=== PATIENT | male | born 1960 | race Native Hawaiian/Other Pacific Islander ===

== ENCOUNTER 2016-08-03 20:26 | Inpatient (IN) | payer OTHER ==
[2016-08-03] MEDS ORDERED: Propofol 10 mg/ml Inj (20 ML) IVP ONE (22:24)
[2016-08-03 22:27] LABS: ADD MANUAL DIFF? NO
[2016-08-03 22:39] LABS: BASO # 0.02 K/mm3 (0.0-2.0); BASO % 0.2 % (0.0-3.0); GRAN # 9.02 (1.4-6.5); GRAN % 82.3 % (50.0-68.0); HEMATOCRIT 42.9 % (42.0-52.0); LYMPH # 1.1 (1.2-3.4); LYMPH % 9.8 % (22.0-35.0); MEAN CELL VOLUME 90.5 fL (80.0-105.0); MEAN CORPUSCULAR HEMOGLOBIN 30.8 pg (25.0-35.0); MEAN PLATELET VOLUME 9.5 fl (7.0-11.0); MONO # 0.9 (0.1-0.6); MONO % 7.7 % (1.0-6.0); PLATELET COUNT 208 10^3/uL (120.0-450.0); RED CELL DISTRIBUTION WIDTH 12.4 % (11.5-14.5)
[2016-08-03 22:41] LABS: ALB/GLOB RATIO 1.4 (1.1-1.8); ALKALINE PHOSPHATASE 66 U/L (38-133); ALT/SGPT 42 U/L (7-56); AST/SGOT 69 U/L (15-59); BILIRUBIN,TOTAL 1.2 mg/dL (0.2-1.3); BLOOD UREA NITROGEN 18 mg/dL (7-21); CALCIUM 9.3 mg/dL (8.4-10.5); CARBON DIOXIDE 28 mmol/L (21-33); CHLORIDE 96 mmol/L (98-107); GFR AFRICAN-AMERICAN > 60; GLUCOSE,RANDOM 137 mg/dL (70-110); POTASSIUM 3.6 mmol/L (3.6-5.0); SODIUM 133 mmol/L (132-148); TOTAL PROTEIN 7.3 g/dL (5.8-8.3)
[2016-08-03 22:46] LABS: INR 1.01 (0.93-1.08); PARTIAL THROMBOPLASTIN TIME 25.9 Seconds (23.7-30.8)
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
[2016-08-03] MEDS ORDERED: HYDROmorphone 0.5 mg/0.5 ml ISec IVP PRN (23:31)
[2016-08-03] MEDS ORDERED: Oxycodone/Acetaminophen 10/325 mg Tab PO PRN (23:32)
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
[2016-08-04] MEDS: Sodium Chloride 0.9% 1,000 ML IV SCH (03:00)
[2016-08-04 04:04] VITALS: BMI 22.7
[2016-08-04] MEDS: Pantoprazole 40 mg EC Tab PO SCH (06:06)
[2016-08-04] MEDS: Pantoprazole 20 mg EC Tab PO SCH (06:06)
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
[2016-08-04 06:55] LABS: ADD MANUAL DIFF? NO
[2016-08-04 07:00] LABS: BASO # 0.02 K/mm3 (0.0-2.0); BASO % 0.3 % (0.0-3.0); EOS % 0.5 % (1.5-5.0); GRAN # 5.22 (1.4-6.5); GRAN % 69.7 % (50.0-68.0); HEMATOCRIT 40.1 % (42.0-52.0); LYMPH # 1.5 (1.2-3.4); LYMPH % 20.4 % (22.0-35.0); MEAN CELL VOLUME 90.5 fL (80.0-105.0); MEAN CORPUSCULAR HGB CONC 33.2 g/dl (31.0-37.0); MEAN PLATELET VOLUME 9.5 fl (7.0-11.0); MONO # 0.7 (0.1-0.6); MONO % 9.1 % (1.0-6.0); PLATELET COUNT 182 10^3/uL (120.0-450.0); RED CELL DISTRIBUTION WIDTH 12.7 % (11.5-14.5); WHITE BLOOD COUNT 7.5 10^3/ul (4.5-11.0)
[2016-08-04 07:22] LABS: MAGNESIUM 1.9 mg/dL (1.7-2.2); PHOSPHOROUS 3.3 mg/dL (2.5-4.5)
--- NOTE | 2016-08-04 07:42 | CT ---
PROCEDURE: CT scan of the left upper extremity without contrast INDICATION: TECHNIQUE: Multiple axial images were obtained with slice thickness of 2.5 mm. Coronal and sagittal reformatted images were obtained. Iterative reconstruction was used. Radiation dose: Total exam DLP = 372.03 mGy-cm. This CT exam was performed using one or more of the following dose reduction techniques: Automated exposure control, adjustment of the mA and/or kV according to patient size, and/or use of iterative reconstruction technique. COMPARISON: None. FINDINGS: There is an acute comminuted fracture in the body of the scapula. There is approximately 1.1 cm distraction of fracture fragments. There is also dorsal angulation and 1 shaft with posterior displacement. There is type 1 acromioclavicular separation. The glenohumeral joint is normal. There is an acute mildly displaced fracture in the left posterior 5th rib. There are acute nondisplaced fracture in the left posterior 3rd and 4th ribs. There is a large left pneumothorax and contusion in the left mid lung. There is deep soft tissue emphysema in the posterior chest wall. IMPRESSION: 1. Acute comminuted fracture in the body of the scapula with approximately 1.1 cm distraction of fracture fragments and dorsal angulation with posterior displacement. 2. Acute mildly displaced fracture in the left posterior 5th rib and nondisplaced fractures in the left 3rd and 4th ribs. Large left pneumothorax and suspect lung contusion in the mid lung. 3. Additional comments as described above. A preliminary report was provided by [employer].
--- NOTE | 2016-08-04 07:46 | RAD ---
HISTORY: post chest tube placement COMPARISON: Earlier same day FINDINGS: LUNGS: No active pulmonary disease. PLEURA: The left lung has been re-expanded following chest tube placement. There is no residual pneumothorax CARDIOVASCULAR: Normal. OSSEOUS STRUCTURES: No significant abnormalities. VISUALIZED UPPER ABDOMEN: Normal. OTHER FINDINGS: None. IMPRESSION: Re-expansion of left lung
[2016-08-04 07:48] LABS: ALB/GLOB RATIO 1.3 (1.1-1.8); ALKALINE PHOSPHATASE 60 U/L (38-133); ALT/SGPT 36 U/L (7-56); AST/SGOT 76 U/L (15-59); BILIRUBIN,TOTAL 1.6 mg/dL (0.2-1.3); BLOOD UREA NITROGEN 17 mg/dL (7-21); CALCIUM 8.8 mg/dL (8.4-10.5); CARBON DIOXIDE 27 mmol/L (21-33); CHLORIDE 104 mmol/L (98-107); GFR AFRICAN-AMERICAN > 60; GLUCOSE,RANDOM 128 mg/dL (70-110); POTASSIUM 3.9 mmol/L (3.6-5.0); SODIUM 140 mmol/L (132-148); TOTAL PROTEIN 6.4 g/dL (5.8-8.3)
--- NOTE | 2016-08-04 07:52 | RAD ---
HISTORY: cough COMPARISON: No prior. FINDINGS: LUNGS: There is a large left-sided pneumothorax. There is no mediastinal shift PLEURA: No significant pleural effusion identified, no pneumothorax apparent. CARDIOVASCULAR: Normal. OSSEOUS STRUCTURES: There is an overlapping fracture of the left 6th rib VISUALIZED UPPER ABDOMEN: Normal. OTHER FINDINGS: A followup film shows chest tube placement. IMPRESSION: Large left-sided pneumothorax and fracture of the left 6th rib
[2016-08-04 07:53] LABS: TROPONIN I 0.02 ng/mL
--- NOTE | 2016-08-04 08:19 | RAD ---
PROCEDURE: Radiographs of the Left Shoulder HISTORY: injury COMPARISON: No prior. FINDINGS: BONES: There is a transverse fracture through the scapula below the level of the bony glenoid. There is also a fracture of the left 6th rib. There is a left-sided pneumothorax that was subsequently treated with a chest tube. JOINTS: Normal. Glenohumeral and acromioclavicular joints preserved. No osteoarthritis. SOFT TISSUES: Normal. OTHER FINDINGS: None. IMPRESSION: Displaced fracture through the scapula and fracture of the left 6th rib
--- NOTE | 2016-08-04 08:26 | RAD ---
HISTORY: s/p chest tube for pneumo COMPARISON: 08/03/2016. FINDINGS: LUNGS: There is contusion in the left upper lobe. The right lung is clear. No focal consolidation. PLEURA: The left chest tube is stable in position. No residual pneumothorax. Suspect small left pleural effusion. No large right pleural effusion. CARDIOVASCULAR: Normal. OSSEOUS STRUCTURES: No significant abnormalities. VISUALIZED UPPER ABDOMEN: Normal. OTHER FINDINGS: None. IMPRESSION: Stable position of left chest tube. No residual pneumothorax. Suspect small left pleural effusion.
--- NOTE | 2016-08-04 09:09 | CT ---
PROCEDURE: CT Chest without contrast HISTORY: scapula fx COMPARISON: None. TECHNIQUE: Contiguous axial images were obtained through the chest without intravenous contrast enhancement. Sagittal and coronal reconstructions were performed. Radiation dose (DLP): 472.23 mGy-cm. This CT exam was performed using one or more of the following dose reduction techniques: Automated exposure control, adjustment of the mA and/or kV according to patient size, and/or use of iterative reconstruction technique. FINDINGS: LUNGS: There is multifocal increased attenuation in the left upper lobe and lingula. There is subsegmental atelectasis in the inferior lingula and left lower lobe. The right lung is clear. MEDIASTINUM: The aorta is normal in size. No aneurysm. Normal sized heart. Main pulmonary artery unremarkable. No vascular congestion. No lymphadenopathy. PLEURA: There is a large left pneumothorax. No evidence of mediastinal shift. BONES: There are acute nondisplaced fractures in the left lateral 3rd and 4th ribs. There is an acute displaced fracture in the left posterior 5th rib. There is an acute comminuted fracture in the left scapula. UPPER ABDOMEN: Evaluation of the abdomen is limited due to extensive streak artifacts OTHER FINDINGS: None. IMPRESSION: 1. Large left pneumothorax and suspect lung contusion in the upper lobe and lingula. 2. Acute mildly displaced fracture in the left posterior 5th rib and acute nondisplaced fractures in left lateral 3rd and 4th ribs. A preliminary report was provided by [employer].
--- NOTE | 2016-08-04 09:53 | CARD ---
APPROVED REPORT EKG Measurement Heart [id number] <Conclusion> Normal sinus rhythm Possible Left atrial enlargement Right bundle branch block Abnormal ECG
--- NOTE | 2016-08-04 10:05 | CARD ---
APPROVED REPORT EXAM: Two-dimensional and M-mode echocardiogram with Doppler and color Doppler. INDICATION CARDIAC CONTUSION 2D DIMENSIONS IVSd0.9 (0.7-1.1cm)LVDd4.5 (3.9-5.9cm) PWd1.1 (0.7-1.1cm)LVDs2.7 (2.5-4.0cm) FS (%) 40.3 %LVEF (%)71.2 (>50%) M-Mode DIMENSIONS Aortic Root3.20 (2.2-3.7cm)Aortic Cusp Exc.1.90 (1.5-2.0cm) Aortic Valve AoV Peak Sobppwvg891.0cm/Noah Peak GR.6mmHg Mitral Valve E/A ratio0.0 TDI E/Lateral E'0.0E/Medial E'0.0 Pulmonary Valve PV Peak Rkxnhxbu35.3cm/sPV Peak Grad.3mmHg Tricuspid Valve TR Peak [id number]/sRAP [id number] Peak Gr.14mmHg [id number] LEFT VENTRICLE The left ventricle is normal size. There is normal left ventricular wall thickness. The left ventricular function is normal.EF-65-70% There is normal LV segmental wall motion. The left ventricular diastolic function is normal. No left ventricle thrombus noted on this study. There is no ventricular septal defect visualized. There is no left ventricular aneurysm. There is no mass noted in the left ventricle. RIGHT VENTRICLE The right ventricle is normal size. There is normal right ventricular wall thickness. The right ventricular systolic function is normal. ATRIA The left atrium size is normal. The right atrium size is normal. The interatrial septum is intact with no evidence for an atrial septal defect. AORTIC VALVE The aortic valve is normal in structure. No aortic regurgitation is present. There is no aortic valvular stenosis. There is no aortic valvular vegetation. MITRAL VALVE The mitral valve is thickened but opens well. Mitral regurgitation is trace. There is no mitral valve stenosis. There is no evidence of mitral valve prolapse. TRICUSPID VALVE The tricuspid valve is normal in structure. There is trace tricuspid regurgitation.RVSP-24 mmof hg. There is no tricuspid valve stenosis. There is no tricuspid valve prolapse or vegetation. PULMONIC VALVE The pulmonary valve is normal in structure. There is no pulmonic valvular regurgitation. There is no pulmonic valvular stenosis. GREAT VESSELS The aortic root is normal in size. The ascending aorta is normal in size. The pulmonary artery is normal. The IVC is normal in size and collapses >50% with inspiration. PERICARDIAL EFFUSION There is no pleural effusion. Trivial Pericardial effusion <Conclusion> Normal chamber Size. EF-65-70% Trace MR/TR RVSP-24 mmof hg Trivial Pericardial effusion. No wall motion abnormality noted.
[2016-08-05] MEDS: Sodium Chloride 0.9% 1,000 ML IV SCH (03:50)
[2016-08-05] MEDS: Pantoprazole 40 mg EC Tab PO SCH (05:41)
[2016-08-05] MEDS: Pantoprazole 20 mg EC Tab PO SCH (06:52)
--- NOTE | 2016-08-05 08:31 | RAD ---
HISTORY: s/p chest tube for pneumo COMPARISON: 08/04/2016 FINDINGS: LUNGS: The left chest tube tip projects over the the medial left mid lung zone on this frontal view. PLEURA: No residual pneumothorax appreciated on this image an apparent inspiration. The trace blunting of left costophrenic angle is unchanged minimal pleural thickening versus trace fluid here considerations. No significant appearing pleural effusions suggested. CARDIOVASCULAR: Normal. OSSEOUS STRUCTURES: Inferior thoracic spondylosis VISUALIZED UPPER ABDOMEN: Normal. OTHER FINDINGS: None. IMPRESSION: No residual or recurring or increasing pneumothorax suggested. Chest tube position as above
[2016-08-05 08:36] LABS: PHOSPHOROUS 3.4 mg/dL (2.5-4.5)
[2016-08-05 09:11] VITALS: RESP 18
[2016-08-05 09:21] LABS: ALB/GLOB RATIO 1.2 (1.1-1.8); ALKALINE PHOSPHATASE 49 U/L (38-133); ALT/SGPT 32 U/L (7-56); AST/SGOT 89 U/L (15-59); BILIRUBIN,TOTAL 2.4 mg/dL (0.2-1.3); BLOOD UREA NITROGEN 12 mg/dL (7-21); CALCIUM 8.7 mg/dL (8.4-10.5); CARBON DIOXIDE 26 mmol/L (21-33); CHLORIDE 105 mmol/L (98-107); GFR AFRICAN-AMERICAN > 60; GLUCOSE,RANDOM 87 mg/dL (70-110); SODIUM 138 mmol/L (132-148); TOTAL PROTEIN 6.3 g/dL (5.8-8.3)
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
--- NOTE | 2016-08-05 13:29 | RAD ---
HISTORY: Repeat eval pneumothorax, on water seal COMPARISON: 08/05/2016 at 7:22 a.m. FINDINGS: LUNGS: A left chest tube tip projects over the medial left mid lung zone as before PLEURA: No residual pneumothorax. No significant appearing pleural pathology appreciated CARDIOVASCULAR: Normal. OSSEOUS STRUCTURES: No significant abnormalities. VISUALIZED UPPER ABDOMEN: Normal. OTHER FINDINGS: None. IMPRESSION: No interval change
--- NOTE | 2016-08-05 15:29 | RAD ---
HISTORY: s/p CT removal COMPARISON: 08/05/2016 chest ; CT chest without contrast 08/03/2016 FINDINGS: LUNGS: The prior mid lung zone left chest tube has been removed PLEURA: No significant pleural effusion identified, no pneumothorax apparent. CARDIOVASCULAR: Normal. OSSEOUS STRUCTURES: A left 5th posterior rib fracture is noted with overriding of the rib fracture site. This appearance is noted on the prior study and unchanged. As per prior CT chest exam additional fractures nondisplaced of the lateral left 3rd and 4th ribs are also present VISUALIZED UPPER ABDOMEN: Normal. OTHER FINDINGS: None. IMPRESSION: Interval removal of the prior left chest tube. No residual pneumothorax seen. Posterior displaced left rib fracture -unchanged since the CT chest exam of 08/03/2016. As per the prior CT exam there is known additional nondisplaced fractures of the left 3rd and 4th 7 previously reported.
[2016-08-05 17:26] VITALS: BP 109/65; PULSE 70; TEMP 97.6; O2SAT 100
== END 2016-08-05 17:28 | disposition home or self-care (01) | DRG 200 ==
LOC: ED 20:26 → ERH 23:27 → CCU 08-04 02:16 → 3RSO 08-04 18:21
PROVIDERS: ADMIT Surgery; ATTEND Surgery
PROC: 0W9B30Z Drainage of Left Pleural Cavity with Drainage Device, Percutaneous Approach (ICD-10-PCS; principal; 2016-08-03)
DX: J93.9 Pneumothorax, unspecified (principal); S26.91XA Contusion of heart, unspecified with or without hemopericardium, initial encounter; S42.102A Fracture of unspecified part of scapula, left shoulder, initial encounter for closed fracture; V18.4XXA Pedal cycle driver injured in noncollision transport accident in traffic accident, initial encounter; Y93.55 Activity, bike riding; R40.2412 Glasgow coma scale score 13-15, at arrival to emergency department; S20.312A Abrasion of left front wall of thorax, initial encounter

== ENCOUNTER 2018-06-06 15:24 | Emergency (ER) | payer BC, OTHER ==
[2018-06-06 16:07] VITALS: BMI 22.1
[2018-06-06 16:16] VITALS: BP 115/82; PULSE 69; RESP 16; TEMP 98.1; O2SAT 96
[2018-06-06 16:48] LABS: INFLUENZA A B NEGATIVE FOR FLU A/B (NEGATIVE)
--- NOTE | 2018-06-06 16:56 | ED PDOC ---
Arrival/HPI - General Chief Complaint: ENT Problem Time Seen by Provider: 06/06/18 16:10 Historian: Patient - History of Present Illness Narrative History of Present Illness (Text): 06/06/18 16:55 58 year old M presents with sore throat. Patient denies any fevers, chills, headache, dizziness, chest pain, shortness of breath, dyspnea on exertion, cough, abdominal pain, nausea, vomiting, diarrhea, back pain, neck pain, or any other complaint. Symptom Onset: Sudden Symptom Course: Unchanged Activities at Onset: Light Context: Home Past Medical History - Provider Review Nursing Documentation Reviewed: Yes - Infectious Disease Hx of Infectious Diseases: None - Tetanus Immunization Tetanus Immunization: Unknown - Pulmonary Hx Respiratory Disorders: Yes - Musculoskeletal/Rheumatological Hx Musculoskeletal Disorders: Yes Hx Falls: Yes Hx Fractures: Yes - Psychiatric Hx Substance Use: No - Anesthesia Hx Anesthesia: No - Suicidal Assessment Feels Threatened In Home Enviroment: No Family/Social History - Physician Review Nursing Documentation Reviewed: Yes Family/Social History: Unknown Family HX Smoking Status: Unknown If Ever Smoked Hx Alcohol Use: Yes (socially) Hx Substance Use: No Allergies/Home Meds Allergies/Adverse Reactions: Allergies No Known Allergies Allergy (Verified 09/16/14 18:42) Review of Systems - Physician Review All systems were reviewed & negative as marked: Yes - Review of Systems Constitutional: absent: Fevers ENT: Sore Throat. absent: Rhinorrhea, Epistaxis Respiratory: absent: SOB, Cough, Wheezing Cardiovascular: absent: Chest Pain, Palpitations, Orthopnea, Syncope Gastrointestinal: absent: Abdominal Pain, Stool Changes, Constipation, Diarrhea, Nausea, Vomiting, Appetite Changes, Hematochezia Genitourinary Male: absent: Dysuria, Hematuria Musculoskeletal: absent: Arthralgias, Back Pain, Joint Swelling, Myalgias Skin: absent: Rash, Cellulitis Neurological: absent: Headache, Dizziness Physical Exam Vital Signs Reviewed: Yes Vital Signs Temp Pulse Resp BP Pulse Ox 06/06/18 16:15 98.1 F 69 16 115/82 96 Temperature: Afebrile Blood Pressure: Normal Pulse: Regular Respiratory Rate: Normal Appearance: Positive for: Well-Appearing, Non-Toxic, Comfortable Pain Distress: Mild Mental Status: Positive for: Alert and Oriented X 3 - Systems Exam Head: Present: Atraumatic, Normocephalic Pupils: Present: PERRL Extroacular Muscles: Present: EOMI Conjunctiva: Present: Normal Mouth: Present: Moist Mucous Membranes Pharnyx: Present: ERYTHEMA Neck: Present: Normal Range of Motion Respiratory/Chest: Present: Clear to Auscultation, Good Air Exchange. No: Respiratory Distress, Accessory Muscle Use Cardiovascular: Present: Regular Rate and Rhythm, Normal S1, S2. No: Murmurs Abdomen: No: Tenderness, Distention, Peritoneal Signs Back: Present: Normal Inspection Upper Extremity: Present: Normal Inspection. No: Cyanosis, Edema Lower Extremity: Present: Normal Inspection. No: Edema Neurological: Present: GCS=15, CN II-XII Intact, Speech Normal Skin: Present: Warm, Dry, Normal Color. No: Rashes Psychiatric: Present: Alert, Oriented x 3, Normal Insight, Normal Concentration Medical Decision Making ED Course and Treatment: 06/06/18 16:58 Impression: 58 year old M presents with sore throat Plan: -- Throat Culture -- Reassess and disposition Prior Visits: Notes and results from previous visits were reviewed. Patient was last seen in the emergency department on Progress Notes: 06/06/18 19:54 strep influenza sent. 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 strep flu neg. mono penidng. stable for dc. - Scribe Statement The provider has reviewed the documentation as recorded by the Brooks Evans All medical record entries made by the Scribe were at my direction and personally dictated by me. I have reviewed the chart and agree that the record accurately reflects my personal performance of the history, physical exam, medical decision making, and the department course for this patient. I have also personally directed, reviewed, and agree with the discharge instructions and disposition. Disposition/Present on Arrival - Present on Arrival Any Indicators Present on Arrival: No History of DVT/PE: No History of Uncontrolled Diabetes: No Urinary Catheter: No History of Decub. Ulcer: No History Surgical Site Infection Following: None - Disposition Have Diagnosis and Disposition been Completed?: Yes Diagnosis: Viral syndrome Disposition: HOME/ ROUTINE Disposition Time: 16:00 Condition: STABLE Discharge Instructions (ExitCare): Sore Throat, Adult (DC) Additional Instructions: return to er with worsening symptosm or concerns Referrals: [facility] [Outside] - Follow up with primary [facility] [Outside] - Follow up with primary Forms: [employer] (Romanian)
== END 2018-06-06 17:07 | disposition home or self-care (01) ==
LOC: ED 15:24
DX: B34.9 Viral infection, unspecified (principal)